=== PATIENT | male | born 1960 | race Caucasian/White ===

== ENCOUNTER 2017-01-22 06:53 | Day surgery (SDC) | payer MEDICARE ==
[~2017-01-22 06:53] MED LIST: Lidocaine 1% with EPINEPHrine 1:100,000 50 ML MDV ONE; Sodium Tetradecyl Sulfate 1% 20 MG/2 ML SDV ONE
[2017-01-22] MEDS ORDERED: fentaNYL 100 MCG/2 ML SDV ONE (07:26)
[2017-01-22] MEDS ORDERED: Propofol 200 MG/20 ML SDV ONE (07:26)
[2017-01-22] MEDS ORDERED: Midazolam 1 MG/ML 2 ML SDV ONE (07:27)
[2017-01-22] MEDS ORDERED: Sodium Chloride 0.9% 1,000 ML IV SCH (07:45)
[2017-01-22] MEDS ORDERED: Sodium Chloride 0.9% 10 ML ONE (08:13)
[2017-01-22] MEDS: Lidocaine 1% w/EPINEPHrine 50 ML, Sodium Bicarbonate 5 MEQ in Sodium Chloride 0.9% 950 ML INJECT SCH ×2 (08:48→08:49)
[2017-01-22 10:30] VITALS: BP 172/98
--- NOTE | 2017-02-02 11:40 | OR ---
DATE OF PROCEDURE: 01/22/2017 PROCEDURE: 1. Radiofrequency ablation of left greater saphenous vein. 2. Radiofrequency ablation of right greater saphenous vein. 3. Left leg, sclerotherapy, multiple. 4. Sclerotherapy right leg, multiple. 5. CoFlex wrapping, bilateral ([id number]). COMPLICATIONS: None. CONSUMER LOAN PROCESSOR: None. PREOPERATIVE DIAGNOSIS: Venous/varicose vein insufficiency with inflammation and pain. POSTOPERATIVE DIAGNOSIS: Venous/varicose vein insufficiency with inflammation and pain. RISKS: Risks, benefits, alternatives, limitations including, but not infection bleeding, DVT formation, chronic wounds, scar formation, other risks were explained to the patient and wished to proceed. PROCEDURE IN DETAIL: The patient was placed in supine position. The left GSV was then identified and accessed first. This was accessed around the level of the ankle. This was accessed using a 21-gauge needle exchanged for a 35,000 wire, then exchanged for a 7-Arabic sheath. The RFA probe was advanced to 3 cm from the saphenofemoral junction. This would be verified a second and third time. Tumescent fluid was injected in 1 cm jacket around this and also verified a second time. Direct even pressure was performed and the RFA probe was deployed x2 proximally and distally and x1 in all other segments. Once the sheath and device were then removed, direct even pressure was held, and Dermabond will be applied on the wound. The right leg was then performed in same manner, same fashion, same technique, in the same sequence using the same equipment. Sclerotherapy was then performed left and right legs using 0.33% sodium tetradecyl. This was always drawn back to ensure intravascular injection only. No more than 2 mL was injected in one location, six on the right, and seven on the left. Compression wrapping was then performed on the left and right legs using two-stage Coban wrapping systems. The patient tolerated the procedure well. José Rivera MD /[id number]
== END 2017-01-22 10:34 | disposition home or self-care (01) ==
LOC: JP.SDS 06:53
PROVIDERS: ATTEND Surgery
DX: I83.11 Varicose veins of right lower extremity with inflammation (principal); I83.12 Varicose veins of left lower extremity with inflammation
CPT/HCPCS: 36471; 36475; J1642; J2250; J2704; J3010; J7040; J7050

== ENCOUNTER 2019-09-09 10:49 | Emergency (ER) | payer MEDICARE ==
[2019-09-09 11:15] VITALS: BP 173/95; PULSE 78
--- NOTE | 2019-09-09 11:41 | EDM.PDOC ---
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 He is on coumadin.He did not go in for a INR on Thursday as he should have. He has had increased tenderness in the inner thighs of both legs but more on the rt. Onset: Gradual Duration: Day(s): Location: Reports: Lower Extremity, Left, Lower Extremity, Right Associated Symptoms: Reports: Other (pt has chronic sob and he has a ambulatory O2 tank. ) - Related Data Allergies Allergy/AdvReac Type Severity Reaction Status Date / Time clindamycin Allergy Cannot Verified 09/09/19 11:15 Remember erythromycin base Allergy Rash Verified 09/09/19 11:15 [Erythromycin Base] hydrochlorothiazide Allergy Cannot Verified 09/09/19 11:15 Remember latex Allergy Rash Verified 09/09/19 11:15 sulfamethoxazole Allergy Cannot Verified 09/09/19 11:15 [From Bactrim] Remember triamcinolone [From Nasacort] Allergy Cannot Verified 09/09/19 11:15 Remember trimethoprim [From Bactrim] Allergy Cannot Verified 09/09/19 11:15 Remember tramadol HCl [From Ultram] AdvReac Vomiting Verified 09/09/19 11:15 triamcinolone acetonide AdvReac Pain Verified 09/09/19 11:15 [From Nasacort AQ] Home Meds: Home Meds Metoprolol Tartrate 100 mg PO BID 08/17/13 [History] Omeprazole [Prilosec] 20 mg PO DAILY 08/17/13 [History] Aspirin [Ecotrin] 81 mg PO DAILY 07/17/16 [History] Warfarin [Coumadin] 1.5 mg PO DAILY 07/17/16 [History] Warfarin [Coumadin] 2.5 mg PO DAILY 07/17/16 [History] allopurinoL [Zyloprim] 300 mg PO DAILY 07/17/16 [History] cloNIDine HCl [Catapres] 0.1 mg PO BID 07/17/16 [History] Acetaminophen 650 mg PO Q6HR 01/20/17 [History] Azithromycin 1 tab PO ASDIRECTED 09/09/19 [History] Furosemide 2 tab PO DAILY 09/09/19 [History] Ipratropium/Albuterol Sulfate [Iprat-Albut 0.5-3(2.5) MG/3 ML] 1 ampule INH Q6HR PRN 09/09/19 [History] Loratadine 1 tab PO DAILY 09/09/19 [History] allopurinoL [Zyloprim] 1 tab PO DAILY 09/09/19 [History] hydrOXYzine HCL [hydrOXYzine] 1 tab PO DAILY 09/09/19 [History] Past Medical History HEENT History: Reports: Allergic Rhinitis Cardiovascular History: Reports: Blood Clots/VTE/DVT, High Cholesterol, Hypertension Respiratory History: Reports: COPD, Sleep Apnea Gastrointestinal History: Reports: GERD Other Gastrointestinal History: diarrhea for one month Genitourinary History: Reports: Chronic Renal Insuffiency, Renal Calculus Musculoskeletal History: Reports: Arthritis, Back Pain, Chronic, Osteoarthritis Neurological History: Reports: Head Trauma Psychiatric History: Reports: ADHD, Anxiety, Depression, Mood Swings - Infectious Disease History Infectious Disease History: Reports: Measles, Mumps - Past Surgical History HEENT Surgical History: Reports: Naso-Sinus Surgery Cardiovascular Surgical History: Reports: None Respiratory Surgical History: Reports: None GI Surgical History: Reports: Colonoscopy Male Surgical History: Reports: None Neurological Surgical History: Reports: Lumbar Spine Musculoskeletal Surgical History: Reports: None Dermatological Surgical History: Reports: None Social & Family History - Family History Family Medical History: Noncontributory - Tobacco Use Smoking Status *Q: Never Smoker - Caffeine Use Caffeine Use: Reports: Coffee, Soda, Tea Review of Systems - Review of Systems Review Of Systems: See Below Constitutional: Reports: No Symptoms Eyes: Reports: No Symptoms Ears: Reports: No Symptoms Nose: Reports: No Symptoms Mouth/Throat: Reports: No Symptoms Respiratory: Reports: Other (pt has chronic sob. ) Cardiovascular: Reports: No Symptoms GI/Abdominal: Reports: No Symptoms Genitourinary: Reports: No Symptoms Musculoskeletal: Reports: No Symptoms Skin: Reports: No Symptoms Neurological: Reports: No Symptoms Psychiatric: Reports: No Symptoms ED EXAM, GENERAL - Physical Exam Exam: See Below Free Text/Narrative:: pt arrived with pain on the inner aspect of the rt leg into the thigh and some on the left. Pt had a Us because of a history of clots and that was neg. Exam Limited By: No Limitations General Appearance: Alert Ears: Normal TMs Nose: Normal Inspection Throat/Mouth: Normal Inspection Head: Atraumatic Neck: Normal Inspection Respiratory/Chest: No Respiratory Distress Cardiovascular: Regular Rate, Rhythm GI/Abdominal: Normal Bowel Sounds (Male) Exam: Deferred Rectal (Males) Exam: Deferred Back Exam: Normal Inspection Extremities: Other (pt has alot of stasis changes in both legs, pulses are diminished. His feet are warm skin is very dry and the tissue feels indurated. He is tender on the inner aspect of both legs. ) Course - Vital Signs Last Recorded V/S: Last Vital Signs Temp 35.9 C L 09/09/19 11:29 Pulse 78 09/09/19 11:29 Resp 23 H 09/09/19 11:29 BP 173/95 H 09/09/19 11:29 Pulse Ox 91 L 09/09/19 11:29 - Orders/Labs/Meds Labs: Laboratory Tests 09/09/19 09/09/19 09/09/19 Range/Units 11:43 11:43 11:43 WBC 7.0 (4.5-11.0) K/uL RBC 4.63 (4.30-5.90) M/uL Hgb 14.6 (12.0-15.0) g/dL Hct 45.9 (40.0-54.0) % MCV 99 H (80-98) fL MCH 32 H (27-31) pg MCHC 32 (32-36) % Plt Count 223 (150-400) K/uL Neut % (Auto) 69 H (36-66) % Lymph % (Auto) 20 L (24-44) % [place] % (Auto) 9 H (2-6) % Eos % (Auto) 2 (2-4) % Baso % (Auto) 0 (0-1) % PT 26.6 H (9.5-12.0) sec INR 2.60 H (0.80-1.20) D-Dimer, Quantitative < 100 (0.0-400.0) ng/mL C-Reactive Protein (0.0-0.3) mg/dL 09/09/19 Range/Units 11:43 WBC (4.5-11.0) K/uL RBC (4.30-5.90) M/uL Hgb (12.0-15.0) g/dL Hct (40.0-54.0) % MCV (80-98) fL MCH (27-31) pg MCHC (32-36) % Plt Count (150-400) K/uL Neut % (Auto) (36-66) % Lymph % (Auto) (24-44) % [place] % (Auto) (2-6) % Eos % (Auto) (2-4) % Baso % (Auto) (0-1) % PT (9.5-12.0) sec INR (0.80-1.20) D-Dimer, Quantitative (0.0-400.0) ng/mL C-Reactive Protein 2.65 H (0.0-0.3) mg/dL - Re-Assessments/Exams Free Text/Narrative Re-Assessment/Exam: 09/09/19 13:34 Us of both legs were obtained and no clots were seen, His Inr was therapeutic Departure - Departure Time of Disposition: 13:27 Disposition: Home, Self-Care 01 Clinical Impression: Leg pain, medial - Discharge Information Referrals: PCP,None [Primary Care Provider] - Forms: ED Department Discharge Care Plan Goals: neg US of the legs for clots, normal wbc. Inr is therapeutic,-- elevate the legs when possibl;e, sit in the shower and have the warm water run over the area , Dry off and apply eucerin cream to both legs, tylenol for pain Sepsis Event Note - Evaluation Sepsis Screening Result: No Definite Risk - Focused Exam Vital Signs: Vital Signs Temp Pulse Resp BP Pulse Ox 09/09/19 11:29 35.9 C L 78 23 H 173/95 H 91 L 09/09/19 11:13 35.9 C L 78 23 H 173/95 H 91 L Date Exam was Performed: 09/09/19 Time Exam was Performed: 13:31
--- NOTE | 2019-09-09 13:02 | US ---
VL Duplex Lwr Ext Veins Comp bilateral HISTORY: Tenderness in her thighs FINDINGS: The deep veins of the both lower extremities demonstrate normal augmentation and compressibility. No evidence for deep venous thrombosis. IMPRESSION: No evidence of deep venous thrombosis in either lower extremity
== END 2019-09-09 13:50 | disposition home or self-care (01) ==
LOC: JP.ED 10:49
DX: M79.605 Pain in left leg (principal); M79.604 Pain in right leg; J44.9 Chronic obstructive pulmonary disease, unspecified; K21.9 Gastro-esophageal reflux disease without esophagitis; M19.90 Unspecified osteoarthritis, unspecified site; I12.9 Hypertensive chronic kidney disease with stage 1 through stage 4 chronic kidney disease, or unspecified chronic kidney disease; N18.9 Chronic kidney disease, unspecified; Z88.1 Allergy status to other antibiotic agents; Z91.040 Latex allergy status; Z88.2 Allergy status to sulfonamides; Z88.8 Allergy status to other drugs, medicaments and biological substances; Z79.01 Long term (current) use of anticoagulants; Z79.899 Other long term (current) drug therapy
CPT/HCPCS: 36415; 85025; 85379; 85610; 86140; 93970; 93970-26; 99282; 99284-25

== ENCOUNTER 2021-04-26 14:57 | Emergency (ER) | payer MEDICARE ==
--- NOTE | 2021-04-26 15:34 | EDM.PDOC ---
ED HPI GENERAL MEDICAL PROBLEM - General Chief Complaint: Respiratory Problem Stated Complaint: [facility] Time Seen by Provider: 04/26/21 15:01 Source of Information: Reports: Patient, EMS History Limitations: Reports: No Limitations - History of Present Illness INITIAL COMMENTS - FREE TEXT/NARRATIVE: Josiah is a 60-year-old male presenting to the ER for evaluation of increasing shortness of breath, cough, and fatigue. The patient has not been feeling well for the last several days. He has had a headache and body aches, some nausea without vomiting, he denies any diarrhea, he denies any loss of taste or smell. Shortly after his arrival we were notified that his granddaughter tested positive for COVID-19 today. Headache Pain Score (Numeric/FACES): 6 - Related Data Allergies Allergy/AdvReac Type Severity Reaction Status Date / Time clindamycin Allergy Cannot Verified 04/26/21 15:15 Remember erythromycin base Allergy Rash Verified 04/26/21 15:15 [Erythromycin Base] hydrochlorothiazide Allergy Cannot Verified 04/26/21 15:15 Remember latex Allergy Rash Verified 04/26/21 15:15 sulfamethoxazole Allergy Cannot Verified 04/26/21 15:15 [From Bactrim] Remember triamcinolone [From Nasacort] Allergy Cannot Verified 04/26/21 15:15 Remember trimethoprim [From Bactrim] Allergy Cannot Verified 04/26/21 15:15 Remember tramadol HCl [From Ultram] AdvReac Vomiting Verified 04/26/21 15:15 triamcinolone acetonide AdvReac Pain Verified 04/26/21 15:15 [From Nasacort AQ] Home Meds: Home Meds Metoprolol Tartrate 100 mg PO BID 08/17/13 [History] Omeprazole [Prilosec] 20 mg PO DAILY 08/17/13 [History] Aspirin [Ecotrin] 81 mg PO DAILY 07/17/16 [History] Warfarin [Coumadin] 1.5 mg PO DAILY 07/17/16 [History] Warfarin [Coumadin] 2.5 mg PO DAILY 07/17/16 [History] allopurinoL [Zyloprim] 300 mg PO DAILY 07/17/16 [History] cloNIDine HCL [Catapres] 0.1 mg PO BID 07/17/16 [History] Acetaminophen 650 mg PO Q6HR 01/20/17 [History] Furosemide 2 tab PO DAILY 09/09/19 [History] Ipratropium/Albuterol Sulfate [Iprat-Albut 0.5-3(2.5) MG/3 ML] 1 ampule INH Q6HR PRN 09/09/19 [History] Loratadine 1 tab PO DAILY 09/09/19 [History] hydrOXYzine HCL [hydrOXYzine] 2 tab PO BEDTIME 09/09/19 [History] Cholecalciferol (Vitamin D3) [Vitamin D3] 50 mcg PO DAILY 04/26/21 [History] Doxycycline [Doxycycline Hyclate] 100 mg PO Q12H 04/26/21 [History] Fluticasone Propion/Salmeterol [Fluticasone-Salmeterol 500-50] 2 puff IH Q12HR 04/26/21 [History] Fluticasone Propionate [Flonase] 2 spray NS DAILY 04/26/21 [History] Gabapentin [Neurontin] 600 mg PO BID 04/26/21 [History] Gabapentin [Neurontin] 900 mg PO BEDTIME 04/26/21 [History] Simvastatin 40 mg PO DAILY 04/26/21 [History] Umeclidinium [place] [Incruse Ellipta*] 62.5 mcg IH DAILY 04/26/21 [History] Past Medical History HEENT History: Reports: Allergic Rhinitis Cardiovascular History: Reports: Blood Clots/VTE/DVT, High Cholesterol, Hypertension Respiratory History: Reports: COPD, Sleep Apnea Gastrointestinal History: Reports: GERD Other Gastrointestinal History: diarrhea for one month Genitourinary History: Reports: Chronic Renal Insuffiency, Renal Calculus Musculoskeletal History: Reports: Arthritis, Back Pain, Chronic, Osteoarthritis Neurological History: Reports: Head Trauma Psychiatric History: Reports: ADHD, Anxiety, Depression, Mood Swings - Infectious Disease History Infectious Disease History: Reports: Measles, Mumps - Past Surgical History HEENT Surgical History: Reports: Naso-Sinus Surgery Cardiovascular Surgical History: Reports: None Respiratory Surgical History: Reports: None GI Surgical History: Reports: Colonoscopy Male Surgical History: Reports: None Neurological Surgical History: Reports: Lumbar Spine Musculoskeletal Surgical History: Reports: None Dermatological Surgical History: Reports: None Social & Family History - Family History Family Medical History: No Pertinent Family History - Caffeine Use Caffeine Use: Reports: Coffee, Soda, Tea ED ROS GENERAL - Review of Systems Review Of Systems: See Below Constitutional: Reports: Fever, Chills, Malaise, Weakness, Decreased Appetite HEENT: Reports: No Symptoms Respiratory: Reports: Shortness of Breath, Cough Cardiovascular: Reports: No Symptoms Endocrine: Reports: Fatigue GI/Abdominal: Reports: Decreased Appetite, Nausea. Denies: Diarrhea, Vomiting : Reports: No Symptoms Musculoskeletal: Reports: Muscle Pain Skin: Reports: No Symptoms Neurological: Reports: Headache Psychiatric: Reports: No Symptoms Hematologic/Lymphatic: Reports: No Symptoms Immunologic: Reports: No Symptoms ED EXAM, GENERAL - Physical Exam Exam: See Below Exam Limited By: No Limitations General Appearance: Alert, Mild Distress, Obese Eye Exam: Bilateral Eye: EOMI, PERRL Throat/Mouth: Normal Inspection, Normal Oropharynx, Normal Voice, No Airway Compromise Head: Atraumatic, Normocephalic Neck: Normal Inspection, Supple. No: Carotid Bruit, Lymphadenopathy (R), Lymphadenopathy (L) Respiratory/Chest: No Respiratory Distress, Crackles (Diffuse bilateral crackles, greater in the bases.) Cardiovascular: Normal Peripheral Pulses, Regular Rate, Rhythm, No Murmur Peripheral Pulses: 2+: Radial (L), Radial (R) GI/Abdominal: Normal Bowel Sounds, Soft, Non-Tender Extremities: Normal Inspection, No Pedal Edema Neurological: Alert, Oriented, CN II-XII Intact, Normal Cognition, No Motor/Sensory Deficits Psychiatric: Normal Affect, Normal Mood Skin Exam: Warm, Dry, Normal Color, No Rash Course - Vital Signs Last Recorded V/S: Last Vital Signs Temp 37.9 C 04/26/21 15:00 Pulse 101 H 04/26/21 17:08 Resp 26 H 04/26/21 17:08 BP 136/74 04/26/21 17:08 Pulse Ox 94 L 04/26/21 17:08 - Orders/Labs/Meds Orders: Active Orders 24 hr Category Date Time Status Chest 1V Frontal [CR] Stat Exams 04/26/21 16:30 Taken Acetaminophen [TylenoL] Med 04/26/21 17:00 Active 650 mg PO ONETIME PRN EPINEPHrine [Adrenalin] Med 04/26/21 17:00 Active 0.3 mg IM ONETIME PRN Famotidine [Pepcid] Med 04/26/21 17:00 Active 20 mg IV ONETIME PRN diphenhydrAMINE [Benadryl] Med 04/26/21 17:00 Active 50 mg IVPUSH ONETIME PRN methylPREDNISolone Sod Succ [Solu-MEDROL] Med 04/26/21 17:00 Active 125 mg IVPUSH ONETIME PRN Isolation [COMM] Stat Oth 04/26/21 15:03 Ordered Medication Orders Acetaminophen (Acetaminophen 325 Mg Tab) 650 mg PO ONETIME PRN PRN Reason: HEADACHE,CHILLS Diphenhydramine HCl (Diphenhydramine 50 Mg/Ml Sdv) 50 mg IVPUSH ONETIME PRN PRN Reason: ALLERGIC RXN Epinephrine HCl (Epinephrine 1 Mg/Ml Sdv) 0.3 mg IM ONETIME PRN PRN Reason: ALLERGIC RXN Famotidine (Famotidine 20 Mg/2 Ml Sdv) 20 mg IV ONETIME PRN PRN Reason: ALLERGIC RXN Methylprednisolone Sodium Succinate (Methylprednisolone Sodium Succinate 125 Mg/2 Ml Sdv) 125 mg IVPUSH ONETIME PRN PRN Reason: ALLERGIC RXN Labs: Laboratory Tests 04/26/21 04/26/21 04/26/21 Range/Units 15:25 15:25 15:25 WBC 5.7 (4.5-11.0) K/uL RBC 4.63 (4.30-5.90) M/uL Hgb 14.4 (12.0-15.0) g/dL Hct 44.1 (40.0-54.0) % MCV 95 (80-98) fL MCH 31 (27-31) pg MCHC 33 (32-36) % Plt Count 125 L (150-400) K/uL Neut % (Auto) 71.9 H (36-66) % Lymph % (Auto) 18.0 L (24-44) % [place] % (Auto) 9.3 H (2-6) % Eos % (Auto) 0.4 L (2-4) % Baso % (Auto) 0.4 (0-1) % D-Dimer, Quantitative 460.19 (0.0-500.0) ng/mL Sodium 137 L (140-148) mmol/L Potassium 3.8 (3.6-5.2) mmol/L Chloride 97 L (100-108) mmol/L Carbon Dioxide 34 H (21-32) mmol/L Anion Gap 9.8 (5.0-14.0) mmol/L BUN 17 D (7-18) mg/dL Creatinine 1.4 H D (0.8-1.3) mg/dL Est Cr Clr Drug Dosing TNP Estimated GFR (MDRD) 51 L (>60) Glucose 91 (74-106) mg/dL Lactic Acid (0.4-2.0) mmol/L Calcium 8.7 (8.5-10.1) mg/dL Ferritin 401 H (8-388) ng/ml Total Bilirubin 0.6 D (0.2-1.0) mg/dL AST 43 H (15-37) U/L ALT 28 (12-78) U/L Alkaline Phosphatase 89 (46-116) U/L Lactate Dehydrogenase 294 H (85-227) U/L C-Reactive Protein 14.27 H (0.0-0.3) mg/dL Total Protein 7.5 (6.4-8.2) g/dL Albumin 3.5 (3.4-5.0) g/dL Globulin 4.0 H (2.3-3.5) g/dL Albumin/Globulin Ratio 0.9 L (1.2-2.2) Procalcitonin ng/mL Influenza Type A RNA (NEGATIVE) RSV RNA (INAAT) (NEGATIVE) Influenza Type B RNA (NEGATIVE) SARS-CoV-2 RNA (BEE) (NEGATIVE) 04/26/21 04/26/21 04/26/21 Range/Units 15:25 15:25 15:35 WBC (4.5-11.0) K/uL RBC (4.30-5.90) M/uL Hgb (12.0-15.0) g/dL Hct (40.0-54.0) % MCV (80-98) fL MCH (27-31) pg MCHC (32-36) % Plt Count (150-400) K/uL Neut % (Auto) (36-66) % Lymph % (Auto) (24-44) % [place] % (Auto) (2-6) % Eos % (Auto) (2-4) % Baso % (Auto) (0-1) % D-Dimer, Quantitative (0.0-500.0) ng/mL Sodium (140-148) mmol/L Potassium (3.6-5.2) mmol/L Chloride (100-108) mmol/L Carbon Dioxide (21-32) mmol/L Anion Gap (5.0-14.0) mmol/L BUN (7-18) mg/dL Creatinine (0.8-1.3) mg/dL Est Cr Clr Drug Dosing Estimated GFR (MDRD) (>60) Glucose (74-106) mg/dL Lactic Acid 0.9 (0.4-2.0) mmol/L Calcium (8.5-10.1) mg/dL Ferritin (8-388) ng/ml Total Bilirubin (0.2-1.0) mg/dL AST (15-37) U/L ALT (12-78) U/L Alkaline Phosphatase (46-116) U/L Lactate Dehydrogenase (85-227) U/L C-Reactive Protein (0.0-0.3) mg/dL Total Protein (6.4-8.2) g/dL Albumin (3.4-5.0) g/dL Globulin (2.3-3.5) g/dL Albumin/Globulin Ratio (1.2-2.2) Procalcitonin 0.22 ng/mL Influenza Type A RNA Negative (NEGATIVE) RSV RNA (INAAT) Negative (NEGATIVE) Influenza Type B RNA Negative (NEGATIVE) SARS-CoV-2 RNA (BEE) Positive H (NEGATIVE) Meds: Medications Generic Name Dose Route Start Last Admin Trade Name Freq PRN Reason Stop Dose Admin Acetaminophen 650 mg 04/26/21 17:00 Acetaminophen 325 Mg Tab PO ONETIME PRN HEADACHE,CHILLS Diphenhydramine HCl 50 mg 04/26/21 17:00 Diphenhydramine 50 Mg/Ml Sdv IVPUSH ONETIME PRN ALLERGIC RXN Epinephrine HCl 0.3 mg 04/26/21 17:00 Epinephrine 1 Mg/Ml Sdv IM ONETIME PRN ALLERGIC RXN Famotidine 20 mg 04/26/21 17:00 Famotidine 20 Mg/2 Ml Sdv IV ONETIME PRN ALLERGIC RXN Methylprednisolone Sodium Succinate 125 mg 04/26/21 17:00 Methylprednisolone Sodium Succinate 125 Mg/2 Ml Sdv IVPUSH ONETIME PRN ALLERGIC RXN Discontinued Medications Generic Name Dose Route Start Last Admin Trade Name Freq PRN Reason Stop Dose Admin Acetaminophen 1,000 mg 04/26/21 15:41 04/26/21 15:45 Acetaminophen 500 Mg Tab PO 04/26/21 15:42 1,000 mg ONETIME ONE Administration - Radiology Interpretation Free Text/Narrative:: I reviewed the patient's 1 view chest x-ray showing bilateral basilar groundgl ass opacities consistent with Covid pneumonitis. - Re-Assessments/Exams Free Text/Narrative Re-Assessment/Exam: 04/26/21 16:29 patient's labs showing a normal CBC with a leukocyte count of 5.7, hemoglobin of 14.4 and a platelet count of 125,000. The comprehensive metabolic panel is remarkable for a sodium 137, potassium 3.8, chloride of 97, bicarbonate of 34, BUN of 17 with a creatinine 1.4 and a glucose of 91. The remainder of his comprehensive metabolic panel is unremarkable. Patient has a normal venous lactic acid at 0.9. He has elevation of his ferritin at 401, LDH of 294 and C-reactive protein at 14.27. The patient is positive for COVID-19. His D-dimer is 409. Patient's chest x-ray was unremarkable for any acute infiltrates 04/26/21 16:29 the patient has significant COVID-19 with hypoxia. He is normally on home oxygen for COPD. He is unvaccinated so he is eligible for monoclonal therapy. He is on day 3 of his illness. We will schedule him today for monoclonal antibody therapy and then he is likely to be able to be discharged home to continue his home oxygen as needed. The patient is concerned about his son being exposed, I encouraged him to wear his mask when the son is around. The patient's granddaughter also tested positive today for COVID-19. Departure - Departure Time of Disposition: 18:15 Disposition: Home, Self-Care 01 Clinical Impression: COVID-19, Pneumonia due to COVID-19 virus - Discharge Information Instructions: 10 Things You Can Do to Manage Your COVID-19 Symptoms at Home - CDC (12/07/2020), COVID-19: How to Protect Yourself and Others - CDC, COVID-19: What to Do If You Are Sick- [facility] (08/08/2020) Referrals: PCP,None [Primary Care Provider] - Forms: ED Department Discharge Care Plan Goals: You have tested positive for COVID-19 which has resulted in some increased work of breathing. Continue to use the oxygen at home to maintain saturations above 90%. As you are positive for COVID-19, you are considered to be quite contagious and should isolate at home. You should wear your mask when around her son as to not expose him to COVID-19. Frequent handwashing of your son should occur as droplets can accumulate on surfaces in the house. We will treat you with a monoclonal antibody therapy which should help lessen the degree of your illness and the length of the illness but it still recommended that once you recover you should get vaccinated for COVID-19. Return to the ER should you develop any significant worsening in your shortness of breath. Sepsis Event Note (ED) - Evaluation Sepsis Screening Result: Possible Sepsis Risk - Focused Exam Vital Signs: Vital Signs Temp Pulse Resp BP Pulse Ox 04/26/21 17:08 101 H 26 H 136/74 94 L 04/26/21 16:48 103 H 22 H 129/72 94 L 04/26/21 15:00 37.9 C 97 22 H 165/87 H 97 - Problem List & Annotations (1) COVID-19 SNOMED Code(s): 273508155 Code(s): U07.1 - COVID-19 Status: Acute Priority: High Current Visit: Yes (2) Pneumonia due to COVID-19 virus SNOMED Code(s): 004277741435822071 Code(s): U07.1 - COVID-19; J12.82 - PNEUMONIA DUE TO CORONAVIRUS DISEASE 2019 Status: Acute Priority: High Current Visit: Yes - Problem List Review Problem List Initiated/Reviewed/Updated: Yes - My Orders Last 24 Hours: My Active Orders 04/26/21 15:03 Isolation [COMM] Stat 04/26/21 16:30 Chest 1V Frontal [CR] Stat 04/26/21 17:00 Acetaminophen [TylenoL] 650 mg PO ONETIME PRN EPINEPHrine [Adrenalin] 0.3 mg IM ONETIME PRN Famotidine [Pepcid] 20 mg IV ONETIME PRN diphenhydrAMINE [Benadryl] 50 mg IVPUSH ONETIME PRN methylPREDNISolone Sod Succ [Solu-MEDROL] 125 mg IVPUSH ONETIME PRN - Assessment/Plan Last 24 Hours: My Active Orders 04/26/21 15:03 Isolation [COMM] Stat 04/26/21 16:30 Chest 1V Frontal [CR] Stat 04/26/21 17:00 Acetaminophen [TylenoL] 650 mg PO ONETIME PRN EPINEPHrine [Adrenalin] 0.3 mg IM ONETIME PRN Famotidine [Pepcid] 20 mg IV ONETIME PRN diphenhydrAMINE [Benadryl] 50 mg IVPUSH ONETIME PRN methylPREDNISolone Sod Succ [Solu-MEDROL] 125 mg IVPUSH ONETIME PRN
[2021-04-26] MEDS ORDERED: Acetaminophen 500 MG Tab PO ONE (15:41)
[2021-04-26 16:17] LABS: CORONAVIRUS COVID-19 NAA POSITIVE (NEGATIVE)
[2021-04-26] MEDS ORDERED: EPINEPHrine 1 MG/ML SDV IM PRN (17:00)
[2021-04-26] MEDS ORDERED: Acetaminophen 325 MG Tab PO PRN (17:00)
[2021-04-26] MEDS ORDERED: Famotidine 20 MG/2 ML SDV IV PRN (17:00)
[2021-04-26] MEDS ORDERED: diphenhydrAMINE 50 MG/ML SDV IVPUSH PRN (17:00)
[2021-04-26] MEDS ORDERED: methylPREDNISolone Sodium Succinate 125 MG/2 ML SDV IVPUSH PRN (17:00)
[2021-04-26 18:03] VITALS: BP 145/76; PULSE 107
--- NOTE | 2021-04-29 10:23 | CR ---
CHEST: Portable 04/26/2021 at 4:58 PM CLINICAL HISTORY:Hypoxia COMPARISON:CT 2019 FINDINGS: There is some patchy density in both lung bases. Heart size and pulmonary vascularity are normal. There are no pleural effusions. Impression: Patchy bibasal pneumonic infiltrates
== END 2021-04-26 18:35 | disposition home or self-care (01) ==
LOC: JP.ED 14:57
DX: U07.1 COVID-19 (principal); J12.82 Pneumonia due to coronavirus disease 2019; I10 Essential (primary) hypertension; E78.00 Pure hypercholesterolemia, unspecified; J44.9 Chronic obstructive pulmonary disease, unspecified; K21.9 Gastro-esophageal reflux disease without esophagitis; Z79.82 Long term (current) use of aspirin; Z79.899 Other long term (current) drug therapy; Z88.8 Allergy status to other drugs, medicaments and biological substances; Z88.1 Allergy status to other antibiotic agents; Z91.040 Latex allergy status
CPT/HCPCS: 0241U; 36415; 71045; 80053; 82728; 83605; 83615; 84145; 85025; 85379; 86140; 99285; A9270; M0243; Q0243

== ENCOUNTER 2023-04-03 07:33 | Day surgery (SDC) | payer MEDICARE ==
[~2023-04-03 07:33] MED LIST changes: -Lidocaine 1% with EPINEPHrine 1:100,000 50 ML MDV ONE; +Midazolam 1 MG/ML 2 ML SDV ONE; +Propofol 200 MG/20 ML SDV ONE; -Sodium Tetradecyl Sulfate 1% 20 MG/2 ML SDV ONE; +fentaNYL 100 MCG/2 ML SDV ONE
[2023-04-03] MEDS ORDERED: Sodium Chloride 0.9% 1,000 ML IV SCH (08:30)
[2023-04-03] MEDS ORDERED: Albuterol/Ipratropium 3.0-0.5 MG/3 ML Neb Soln NEB ONE (08:45)
[2023-04-03] MEDS ORDERED: Propofol 200 MG/20 ML SDV ONE (10:31)
[2023-04-03 11:42] VITALS: BP 150/75; PULSE 72
== END 2023-04-03 11:46 | disposition home or self-care (01) ==
LOC: JP.SDS 07:33
PROVIDERS: ATTEND Surgery
DX: K57.30 Diverticulosis of large intestine without perforation or abscess without bleeding (principal); K21.00 Gastro-esophageal reflux disease with esophagitis, without bleeding; K22.89 Other specified disease of esophagus; G47.33 Obstructive sleep apnea (adult) (pediatric); J44.9 Chronic obstructive pulmonary disease, unspecified; E11.22 Type 2 diabetes mellitus with diabetic chronic kidney disease; I12.9 Hypertensive chronic kidney disease with stage 1 through stage 4 chronic kidney disease, or unspecified chronic kidney disease; N18.31 Chronic kidney disease, stage 3a; F41.9 Anxiety disorder, unspecified; E66.01 Morbid (severe) obesity due to excess calories; Z87.891 Personal history of nicotine dependence; Z88.1 Allergy status to other antibiotic agents; Z91.040 Latex allergy status
CPT/HCPCS: 88305; 94640; J2250; J2704; J3010; J7030; J7620

== ENCOUNTER 2023-08-05 06:25 | Day surgery (SDC) | payer MEDICARE ==
[2023-08-05] MEDS: Lactated Ringers 1,000 ML IV SCH (06:53)
[2023-08-05] MEDS: Nozin Nasal Sanitizer NASBOTH ONE (06:54)
[2023-08-05] MEDS ORDERED: Lidocaine 0.5% 50 ML SDV ONE (07:35)
[2023-08-05] MEDS ORDERED: fentaNYL 100 MCG/2 ML SDV ONE (07:35)
[2023-08-05] MEDS ORDERED: Propofol 200 MG/20 ML SDV ONE (07:35)
[2023-08-05] MEDS ORDERED: Midazolam 1 MG/ML 2 ML SDV ONE (07:35)
[2023-08-05] MEDS: ceFAZolin 1 GM in Premix Bag 1 BAG IV ONE (07:50)
[2023-08-05] MEDS: Bupivacaine 0.5% 30 ML SDV ONE (08:26)
[2023-08-05 09:26] VITALS: BP 114/57; PULSE 63
[2023-08-05] MEDS: Acetaminophen/HYDROcodone 325-5 MG Tab PO ONE (09:28)
== END 2023-08-05 10:00 | disposition home or self-care (01) ==
LOC: JP.SDS 06:25
PROVIDERS: ATTEND Specialist
DX: G56.01 Carpal tunnel syndrome, right upper limb (principal); J44.9 Chronic obstructive pulmonary disease, unspecified; I12.9 Hypertensive chronic kidney disease with stage 1 through stage 4 chronic kidney disease, or unspecified chronic kidney disease; E11.22 Type 2 diabetes mellitus with diabetic chronic kidney disease; N18.31 Chronic kidney disease, stage 3a; E78.00 Pure hypercholesterolemia, unspecified; Z79.82 Long term (current) use of aspirin; Z79.84 Long term (current) use of oral hypoglycemic drugs; Z79.899 Other long term (current) drug therapy; Z88.1 Allergy status to other antibiotic agents; Z88.2 Allergy status to sulfonamides; Z91.040 Latex allergy status
CPT/HCPCS: 64721; A9270; J0665; J0690; J2250; J2704; J3010; J7120

== ENCOUNTER 2023-11-05 04:58 | Emergency (ER) | payer MEDICARE ==
[2023-11-05 05:06] VITALS: PULSE 100
[2023-11-05] MEDS: Albuterol/Ipratropium 3.0-0.5 MG/3 ML Neb Soln NEB ONE (05:11)
[2023-11-05 05:13] LABS: BASOPHILS ABSOLUTE AUTO 0.03 K/uL (0.00-0.10); BASOPHILS PERCENT AUTO 0.4 % (0.1-1.3); EOSINOPHILS ABSOLUTE AUTO 0.09 K/uL (0.00-0.40); EOSINOPHILS PERCENT AUTO 1.1 % (0.0-5.4); HEMATOCRIT 35.8 % (38.4-49.7); HEMOGLOBIN 12.3 g/dL (12.9-16.9); IMMATURE GRAN ABSOLUTE AUTO 0.03 K/uL (0.00-0.23); IMMATURE GRAN PERCENT AUTO 0.4 % (0.0-0.7); LYMPHOCYTES ABSOLUTE AUTO 0.76 K/uL (0.8-3.3); LYMPHOCYTES PERCENT AUTO 9.5 % (11.4-47.7); MEAN CORPUSCULAR HGB CONC 34.4 g/dL (31.6-35.5); MONOCYTES ABSOLUTE AUTO 0.69 K/uL (0.20-0.90); MONOCYTES PERCENT AUTO 8.6 % (3.3-12.6); NEUTROPHILS ABSOLUTE AUTO 6.43 K/uL (1.0-7.6); PLATELET COUNT,PLT 133 K/uL (130-375); RED BLOOD CELL COUNT 3.73 M/uL (4.14-5.76)
[2023-11-05 05:14] LABS: BASE EXCESS ARTERIAL 5.5 mm/L; BICARBONATE,ARTERIAL 28.2 mmol/L (22.0-26.0); CARBOXYHEMOGLOBIN 3.6 % (0.0-1.6); METHEMOGLOBIN 0.6 %; OXYHEMOGLOBIN 89.1 %; PCO2 ARTERIAL 35.1 mmHg (35.0-42.0); PO2 ARTERIAL 54.5 mmHg (75.0-100.0); TOTAL HEMOGLOBIN 13.2 g/dL (13.5-18.0)
[2023-11-05 05:16] LABS: LACTIC ACID 2.2 mmol/L (0.4-2.0)
[2023-11-05 05:37] LABS: C-REACTIVE PROTEIN 3.41 mg/dL (<0.50); CALCIUM 9.3 mg/dL (8.5-10.1); CREATININE 1.2 mg/dL (0.8-1.3); EST CRCL DRUG DOSING (CG) 60.17 mL/min; POTASSIUM,K 4.4 mmol/L (3.6-5.2)
[2023-11-05 05:44] LABS: ANION GAP 14.4 mmol/L (5.0-14.0)
[2023-11-05] MEDS: Furosemide 40 MG/4 ML VIAL IVPUSH ONE (06:16)
[2023-11-05] MEDS: Dexamethasone 2 MG Tab PO ONE (06:16)
[2023-11-05] MEDS: Acetaminophen 500 MG Tab PO ONE (06:32)
[2023-11-05 06:33] VITALS: BP 174/86
== END 2023-11-05 07:06 | disposition home or self-care (01) ==
LOC: JP.ED 04:58
DX: I11.0 Hypertensive heart disease with heart failure (principal); I50.9 Heart failure, unspecified; J44.9 Chronic obstructive pulmonary disease, unspecified; K21.9 Gastro-esophageal reflux disease without esophagitis; E11.9 Type 2 diabetes mellitus without complications; E66.9 Obesity, unspecified; Z68.30 Body mass index [BMI] 30.0-30.9, adult; Z88.1 Allergy status to other antibiotic agents; Z91.040 Latex allergy status; Z88.2 Allergy status to sulfonamides; Z88.8 Allergy status to other drugs, medicaments and biological substances; Z79.899 Other long term (current) drug therapy; Z79.82 Long term (current) use of aspirin; Z79.01 Long term (current) use of anticoagulants; Z79.84 Long term (current) use of oral hypoglycemic drugs; Z87.891 Personal history of nicotine dependence
CPT/HCPCS: 36415; 36600; 71045; 80048; 82803; 83605; 84484; 85025; 86140; 93005; 94640; 96374; 99285; A9270; J1940; J8540; 93010; 99284; J7620

== ENCOUNTER 2024-08-06 07:06 | Inpatient (IN) | payer MEDICARE, OTHER ==
[2024-08-06 07:22] LABS: BASOPHILS PERCENT AUTO 0.4 % (0.1-1.3); EOSINOPHILS ABSOLUTE AUTO 0.19 K/uL (0.00-0.40); EOSINOPHILS PERCENT AUTO 3.5 % (0.0-5.4); HEMATOCRIT 34.1 % (38.4-49.7); HEMOGLOBIN 11.1 g/dL (12.9-16.9); IMMATURE GRAN PERCENT AUTO 0.4 % (0.0-0.7); LYMPHOCYTES ABSOLUTE AUTO 0.84 K/uL (0.8-3.3); LYMPHOCYTES PERCENT AUTO 15.6 % (11.4-47.7); MEAN CORPUSCULAR HGB CONC 32.6 g/dL (31.6-35.5); MEAN CORPUSCULAR VOLUME 101.5 fL (81.4-99.0); MONOCYTES ABSOLUTE AUTO 0.44 K/uL (0.20-0.90); MONOCYTES PERCENT AUTO 8.2 % (3.3-12.6); NEUTROPHILS ABSOLUTE AUTO 3.86 K/uL (1.0-7.6); NEUTROPHILS PERCENT AUTO 71.9 % (40.0-78.1); PLATELET COUNT,PLT 133 K/uL (130-375); RED BLOOD CELL COUNT 3.36 M/uL (4.14-5.76); WHITE BLOOD CELL COUNT,WBC 5.4 K/uL (3.2-11.0)
[2024-08-06 07:23] LABS: BASOPHILS ABSOLUTE AUTO 0.02 K/uL (0.00-0.10); IMMATURE GRAN ABSOLUTE AUTO 0.02 K/uL (0.00-0.23)
[2024-08-06 07:33] LABS: BASE EXCESS ARTERIAL 5.4 mm/L; BICARBONATE,ARTERIAL 30.2 mmol/L (22.0-26.0); CARBOXYHEMOGLOBIN 2.4 % (0.0-1.6); METHEMOGLOBIN 0.7 %; O2 SATURATION ARTERIAL 93.4 % (95.0-98.0); OXYHEMOGLOBIN 90.5 %; PCO2 ARTERIAL 47.2 mmHg (35.0-42.0); PO2 ARTERIAL 64.7 mmHg (75.0-100.0); TOTAL HEMOGLOBIN 11.1 g/dL (13.5-18.0)
[2024-08-06 07:41] LABS: LACTIC ACID 1.4 mmol/L (0.4-2.0)
[2024-08-06] MEDS: methylPREDNISolone Sodium Succinate 125 MG/2 ML SDV IVPUSH ONE (07:43)
[2024-08-06] MEDS: Albuterol 0.083% 2.5 MG/3 ML Neb Soln NEB ONE ×2 (07:43→09:19)
[2024-08-06] MEDS: Sodium Chloride 0.9% 500 ML IV ONE (07:43)
[2024-08-06 07:48] LABS: A/G RATIO 0.8 (1.2-2.2); ALANINE AMINOTRANSFERASE,ALT 44 U/L (12-78); ALBUMIN 3.3 g/dL (3.4-5.0); ALKALINE PHOSPHATASE 94 U/L (46-116); ASPARTATE AMNIOTRANSFERASE,AST 48 U/L (15-37); BILIRUBIN TOTAL 0.4 mg/dL (0.2-1.0); BLOOD UREA NITROGEN,BUN 20 mg/dL (7-18); CARBON DIOXIDE,CO2 33 mmol/L (21-32); CHLORIDE,CL 101 mmol/L (100-108); CREATININE 1.2 mg/dL (0.8-1.3); ESTIMATED GFR 67 mL/min (>60); GLUCOSE RANDOM 119 mg/dL (74-106); POTASSIUM,K 4.5 mmol/L (3.6-5.2); PRO B-TYPE NATRIUR PEPT,BNPPRO 449 pg/mL (5-125); PROTEIN TOTAL,TP 7.3 g/dL (6.4-8.2); SODIUM,NA 144 mmol/L (140-148); TROPONIN I HIGH SENSITIVITY 24.6 pg/mL (<=60.3)
[2024-08-06 07:51] LABS: ANION GAP 14.5 mmol/L (5.0-14.0)
[2024-08-06] MEDS ORDERED: Levofloxacin/Dextrose 5%-Water 750 MG in Premix Bag 1 BAG IV ONE ×2 (07:53→09:30)
[2024-08-06 08:21] LABS: CORONAVIRUS COVID-19 NAA NEGATIVE (NEGATIVE); INFLUENZA A NAA NEGATIVE (NEGATIVE); INFLUENZA B NAA NEGATIVE (NEGATIVE); RESPIRATORY SYNCYTIAL VIR NAA NEGATIVE (NEGATIVE)
[2024-08-06] MEDS: Sodium Chloride 0.9% 100 ML IV SCH (08:49)
[2024-08-06] MEDS: Iopamidol 755 Mg/ML 100 ML Bottle IV SCH (08:49)
[2024-08-06] MEDS: Furosemide 40 MG/4 ML VIAL IVPUSH ONE (09:18)
[2024-08-06] MEDS: Acetaminophen 500 MG Tab PO ONE (09:19)
[2024-08-06 09:21] LABS: INR 1.6; PROTHROMBIN TIME 16.3 sec (9.2-10.6)
[2024-08-06] MEDS: Levofloxacin/Dextrose 5%-Water 500 MG in Premix Bag 1 BAG IV ONE ×2 (09:34→10:56)
[2024-08-06 10:11] LABS: BICARBONATE,ARTERIAL 28.5 mmol/L (22.0-26.0); CARBOXYHEMOGLOBIN 2.2 % (0.0-1.6); METHEMOGLOBIN 0.9 %; O2 SATURATION ARTERIAL 89.3 % (95.0-98.0); OXYHEMOGLOBIN 86.5 %; PCO2 ARTERIAL 44.2 mmHg (35.0-42.0); PO2 ARTERIAL 55.4 mmHg (75.0-100.0); TOTAL HEMOGLOBIN 11.6 g/dL (13.5-18.0)
[2024-08-06] MEDS: diphenhydrAMINE 25 MG Cap PO ONE (11:11)
[2024-08-06] MEDS ORDERED: Polyethylene Glycol 3350 Powder 17 GM Packet PO PRN (13:22)
[2024-08-06] MEDS ORDERED: Sodium Chloride 0.9% 10 ML Syringe FLUSH PRN (13:22)
[2024-08-06] MEDS ORDERED: Non-Formulary Medication 1 Each (Fluticasone Propion/Salmeterol [Fluticasone-Salmeterol 50 IH SCH (13:22)
[2024-08-06] MEDS ORDERED: Glucose Gel 15 GM in 37.5 GM Tube PO PRN (13:22)
[2024-08-06] MEDS ORDERED: Non-Formulary Medication 1 Each (Umeclidinium Bromide [Incruse Ellipta*] 62.5 MCG Blst.W.D IH PRN (13:22)
[2024-08-06] MEDS ORDERED: Ondansetron 4 MG/2 ML SDV IV PRN (13:22)
[2024-08-06] MEDS ORDERED: 50% Dextrose in Water 50 ML Syringe IV PRN (13:22)
[2024-08-06] MEDS ORDERED: Ipratropium 0.06% Nasal Spray 15 ML Bottle NAS SCH (14:00)
[2024-08-06] MEDS: Gabapentin 300 MG Cap PO SCH (14:21)
[2024-08-06] MEDS: Furosemide 40 MG Tab PO SCH (14:22)
[2024-08-06] MEDS: methylPREDNISolone Sodium Succinate 40 MG/1 ML SDV IVPUSH SCH ×2 (14:22→20:19)
[2024-08-06] MEDS: Acetaminophen 325 MG Tab PO PRN (14:22)
[2024-08-06] MEDS ORDERED: Fluticasone NASAL Spray 16 GM Bottle NAS PRN (14:27)
[2024-08-06] MEDS: Albuterol/Ipratropium 3.0-0.5 MG/3 ML Neb Soln NEB SCH (14:29)
[2024-08-06] MEDS: Sodium Chloride 0.9% 1,000 ML IV SCH (14:43)
[2024-08-06] MEDS ORDERED: Warfarin** 1 MG TABLET PO SCH (15:00)
[2024-08-06] MEDS: Warfarin** 1 MG TABLET PO SCH (16:13)
[2024-08-06] MEDS: oxyCODONE 5 MG Tab PO PRN (16:13)
[2024-08-06] MEDS: diphenhydrAMINE 25 MG Cap PO PRN (16:13)
[2024-08-06] MEDS: metFORMIN 500 MG Tab PO SCH (16:14)
[2024-08-06] MEDS: cefTRIAXone 1 GM in Sodium Chloride 0.9% 50 ML IV SCH (16:14)
[2024-08-06] MEDS: Insulin Lispro 100 Unit/ML 3 ML KwikPen SUBCUT SCH (16:44)
[2024-08-06] MEDS: Doxycycline 100 MG in Sodium Chloride 0.9% 100 ML IV SCH (16:46)
[2024-08-06] MEDS: cloNIDine 0.1 MG Tab PO SCH (20:20)
[2024-08-06] MEDS: Metoprolol Tartrate 50 MG Tab PO SCH (20:29)
[2024-08-06] MEDS: Formoterol/Mometasone 200-5 MCG 8.8 GM Inhaler IH SCH (20:33)
[2024-08-06] MEDS ORDERED: Furosemide 20 MG Tab PO SCH (21:00)
[2024-08-07] MEDS: Albuterol 0.083% 2.5 MG/3 ML Neb Soln NEB PRN (05:47)
[2024-08-07 05:50] LABS: HEMATOCRIT 34.4 % (38.4-49.7); HEMOGLOBIN 11.3 g/dL (12.9-16.9); MEAN CORPUSCULAR HEMOGLOBIN 33.1 pg (31.6-35.5); MEAN CORPUSCULAR HGB CONC 32.8 g/dL (31.6-35.5); MEAN CORPUSCULAR VOLUME 100.9 fL (81.4-99.0); RED BLOOD CELL COUNT 3.41 M/uL (4.14-5.76)
[2024-08-07 06:01] LABS: ANION GAP 13.1 mmol/L (5.0-14.0); CALCIUM 8.7 mg/dL (8.5-10.1); CREATININE 1.5 mg/dL (0.8-1.3); EST CRCL DRUG DOSING (CG) 45.9 mL/min; MAGNESIUM 1.5 mg/dL (1.8-2.4)
[2024-08-07 06:05] LABS: INR 1.5; PROTHROMBIN TIME 15.4 sec (9.2-10.6)
[2024-08-07] MEDS: Pantoprazole 40 MG Tab.CR PO SCH (07:25)
[2024-08-07] MEDS: predniSONE 20 MG Tab PO SCH (07:26)
[2024-08-07] MEDS ORDERED: Magnesium Sulf/Wat 2 GM/50 mL 2 GM in Premix Bag 1 BAG IV SCH (07:45)
[2024-08-07] MEDS: Magnesium Oxide 400 MG Tab PO SCH (08:15)
[2024-08-07] MEDS: Allopurinol 100 MG Tab PO SCH (08:16)
[2024-08-07] MEDS: atorvaSTATin 20 MG Tab PO SCH (08:16)
[2024-08-07] MEDS: DULoxetine 20 MG Cap PO SCH (08:16)
[2024-08-07] MEDS: Magnesium Sulf/Wat 2 GM/50 mL 2 GM in Premix Bag 1 BAG IV SCH (08:17)
[2024-08-07] MEDS: Loratadine 10 MG Tab PO SCH (08:17)
[2024-08-07] MEDS: Aspirin 81 MG Tab.EC PO SCH (08:17)
[2024-08-07] MEDS ORDERED: Fluticasone NASAL Spray 16 GM Bottle NAS SCH (09:00)
[2024-08-07] MEDS ORDERED: Magnesium Oxide 400 MG Tab PO SCH (09:00)
[2024-08-07] MEDS ORDERED: Non-Formulary Medication 1 Each (Revefenacin [Yupelri] 175 MCG/3 ML Neb) NEB SCH (09:00)
[2024-08-07] MEDS: Benzocaine/Cetylpyridinium/Menthol Lozenge MUCMEM PRN (11:39)
[2024-08-07] MEDS ORDERED: Warfarin** 1 MG TABLET PO SCH (13:00)
[2024-08-08 06:08] LABS: INR 1.7; PROTHROMBIN TIME 17.1 sec (9.2-10.6)
[2024-08-08 06:09] LABS: ANION GAP 10.1 mmol/L (5.0-14.0); CALCIUM 8.5 mg/dL (8.5-10.1); CREATININE 1.3 mg/dL (0.8-1.3); EST CRCL DRUG DOSING (CG) 52.96 mL/min; MAGNESIUM 3.1 mg/dL (1.8-2.4); POTASSIUM,K 4.1 mmol/L (3.6-5.2)
[2024-08-08] MEDS ORDERED: Warfarin** 1 MG TABLET PO SCH (13:00)
[2024-08-08] MEDS: Warfarin 5 MG Tab PO SCH (15:16)
[2024-08-08] MEDS: Doxycycline 100 MG Cap PO SCH (21:10)
[2024-08-08 22:41] VITALS: PULSE 82
[2024-08-09 05:28] VITALS: BP 136/81
[2024-08-09 06:06] LABS: INR 1.8; PROTHROMBIN TIME 17.8 sec (9.2-10.6)
== END 2024-08-09 11:45 | disposition home or self-care (01) | DRG 193 ==
LOC: JP.ED 07:06 → JP.MS 11:13
PROVIDERS: ADMIT Hospitalist; ATTEND Internal Medicine
PROC: 4A133R1 Monitoring of Arterial Saturation, Peripheral, Percutaneous Approach (ICD-10-PCS; principal; 2024-08-06)
DX: J18.9 Pneumonia, unspecified organism (principal); J96.21 Acute and chronic respiratory failure with hypoxia; J96.22 Acute and chronic respiratory failure with hypercapnia; J44.1 Chronic obstructive pulmonary disease with (acute) exacerbation; J44.0 Chronic obstructive pulmonary disease with (acute) lower respiratory infection; Z66 Do not resuscitate; Z88.1 Allergy status to other antibiotic agents; Z68.39 Body mass index [BMI] 39.0-39.9, adult; Z91.040 Latex allergy status; Z88.2 Allergy status to sulfonamides; Z79.82 Long term (current) use of aspirin; H54.7 Unspecified visual loss; Z79.84 Long term (current) use of oral hypoglycemic drugs; Z79.51 Long term (current) use of inhaled steroids; E78.00 Pure hypercholesterolemia, unspecified; I10 Essential (primary) hypertension; G47.30 Sleep apnea, unspecified; K21.9 Gastro-esophageal reflux disease without esophagitis; N20.0 Calculus of kidney; E86.0 Dehydration; M19.90 Unspecified osteoarthritis, unspecified site; E11.40 Type 2 diabetes mellitus with diabetic neuropathy, unspecified; F90.9 Attention-deficit hyperactivity disorder, unspecified type; F41.9 Anxiety disorder, unspecified; F32.A Depression, unspecified; E66.9 Obesity, unspecified; Z79.01 Long term (current) use of anticoagulants; Z98.890 Other specified postprocedural states; Z88.8 Allergy status to other drugs, medicaments and biological substances; Z86.718 Personal history of other venous thrombosis and embolism; Z79.899 Other long term (current) drug therapy; Z99.81 Dependence on supplemental oxygen
CPT/HCPCS: 0241U; 36415; 36600; 71275; 80048; 80053; 82803; 82947; 83605; 83735; 83880; 84484; 85025; 85027; 85379; 85610; 87040; 93005; 94640; 96361; 96365; 96375; 96376; 99222; 99231; 99232; 99238; 99285; 93010; 99284; A7290-GY; A9270-GY; J0696; J1815; J1940; J1956; J2919; J3475; J3490; J7030; J7512; Q9967

== ENCOUNTER 2024-11-03 21:00 | Emergency (ER) | payer MEDICARE, OTHER ==
[2024-11-03] MEDS ORDERED: Silver Nitrate Applicator Each TOP ONE (22:05)
[2024-11-03 23:23] VITALS: BP 193/108; PULSE 86
== END 2024-11-03 22:40 | disposition home or self-care (01) ==
LOC: JP.ED 21:00
DX: S00.411A Abrasion of right ear, initial encounter (principal); I10 Essential (primary) hypertension; E78.00 Pure hypercholesterolemia, unspecified; E11.40 Type 2 diabetes mellitus with diabetic neuropathy, unspecified; J44.9 Chronic obstructive pulmonary disease, unspecified; Z88.1 Allergy status to other antibiotic agents; Z88.8 Allergy status to other drugs, medicaments and biological substances; Z91.040 Latex allergy status; Z88.2 Allergy status to sulfonamides; Z79.82 Long term (current) use of aspirin; Z79.899 Other long term (current) drug therapy; Z79.51 Long term (current) use of inhaled steroids; Z79.84 Long term (current) use of oral hypoglycemic drugs; Z79.01 Long term (current) use of anticoagulants; W50.4XXA Accidental scratch by another person, initial encounter
CPT/HCPCS: 99283